=== PATIENT | female | born 1950 | race Caucasian/White ===

== ENCOUNTER 2017-11-08 05:29 | Day surgery (SDC) | payer MEDICARE, OTHER ==
[2017-11-08] MEDS ORDERED: LIDOCAINE 1% (MPF) 30 ML INJ (06:42)
[2017-11-08] MEDS ORDERED: CEFAZOLIN 1 GM INJ (07:00)
[2017-11-08] MEDS ORDERED: POLYMYXIN/BACITRACIN 1L IRRIG (07:04)
[2017-11-08] MEDS ORDERED: FENTAnyl 50 MCG/ML VIAL (07:33)
[2017-11-08] MEDS ORDERED: DEXAMETHASONE 4 MG/ML 1 ML INJ (07:43)
[2017-11-08] MEDS ORDERED: ONDANSETRON 4 MG INJ (07:44)
[2017-11-08] MEDS: LIDOCAINE 2% (MDV) 20 ML INJ (07:48)
[2017-11-08] MEDS: BACITRACIN/POLYMYXIN 28.35 GM OINT TOP (07:49)
[2017-11-08] MEDS ORDERED: OXYCODONE/ACETAMINOPHEN (5/325) TAB PO ×2 (08:30)
[2017-11-08] MEDS ORDERED: DIPHENHYDRAMINE 50 MG INJ IV (08:30)
[2017-11-08] MEDS ORDERED: EPHEDrine SULFATE 50 MG/5 ML SYG IV (08:30)
[2017-11-08] MEDS ORDERED: MEPERIDINE 25 MG INJ IV (08:30)
[2017-11-08] MEDS ORDERED: FENTAnyl 50 MCG/ML VIAL IV ×2 (08:30)
[2017-11-08] MEDS ORDERED: ALBUTEROL 0.083% (NEB) 2.5 MG/3 ML AMP HHN (08:30)
[2017-11-08] MEDS ORDERED: KETOROLAC 30 MG INJ IV (08:30)
[2017-11-08] MEDS ORDERED: hydrALAzine 20 MG INJ IV (08:30)
[2017-11-08] MEDS ORDERED: LABETALOL HCL 20MG INJ IV (08:30)
[2017-11-08] MEDS ORDERED: ONDANSETRON 4 MG INJ IV ×2 (08:30)
[2017-11-08] MEDS ORDERED: CEFAZOLIN 2 GM/50 ML (PMX) 50 ML IVPB (09:00)
[2017-11-08] MEDS: HYDROCODONE/APAP (5/325) TAB PO (10:16)
== END 2017-11-08 10:34 | disposition home or self-care (01) ==
LOC: SDS 05:29
DX: M65.342 Trigger finger, left ring finger (principal); E78.5 Hyperlipidemia, unspecified; J45.909 Unspecified asthma, uncomplicated
CPT/HCPCS: 26055